=== PATIENT | female | born 1955 | race Caucasian/White ===

== ENCOUNTER → 2016-05-01 | Outpatient (CLI) | payer OTHER ==
[~2016-05-01] MED LIST: AMIO200T4 PO; CHOL1000 PO; CYAN10005 PO; DOCU100C31 PO; DRGTP25 TOP; DTRSR4 PO; DXM/4 PO; FENT75DI2 TOP; GABA-113 PO; LDDP5 TD; LENA20CA PO; LEVO50TA PO; MRLP17X PO; NRN400 PO; NUTRTAB55 PO; ONDA4TAB10 SL; OXYC1TAB3 PO; RXC5 PO; SULF-302 PO; XNX25 PO; ZVR/400 PO
--- NOTE | 2016-05-01 13:47 | MAMMOGRAPHY REPORT ---
UNILATERAL LEFT DIGITAL DIAGNOSTIC MAMMOGRAM TOMOSYNTHESIS: 05/01/2016 CLINICAL HISTORY: 6 Month Follow-up Left. TECHNIQUE: Breast tomosynthesis in addition to standard 2D mammography was performed. Left CC and MLO 2-D and tomosynthesis images were obtained. COMPARISON: Comparison is made to exams dated: 10/30/2015 ultrasound, 10/30/2015 mammogram, and 10/23/19 16 mammogram - [facility]. BREAST COMPOSITION: The tissue of the left breast is extremely dense, which lowers the sensitivity of mammography. FINDINGS: There are no suspicious masses, calcifications, or areas of architectural distortion note d in the left breast. There has been no significant interval change compared to the September 2015 exam. The previously described asymmetries are less prominent and have the appearance of normal fibrogla ndular tissue on the current exam. Scattered benign-appearing calcifications are stable. IMPRESSION: ACR BI-RADS CATEGORY 2: BENIGN There is no mammographic evidence of malignancy in the left breast. Return to annual mammogram scree shon schedule is recommended, due September/October 2016. The patient has been verbally notified of the res ults. Approximately 10% of breast cancers are not detected with mammography. A negative mammographic repor t should not delay biopsy if a clinically suggestive mass is present. Florencia Rogers M.D. /:05/01/2016 11:13:57 Sql Application Developer: Monik NEVILLE)(Phi), [facility] letter sent: Normal 1/2 BI-RADS Code: ACR BI-RADS Category 2: Benign
== END | disposition home or self-care (01) ==
LOC: C.MAMM 10:51
PROVIDERS: ATTEND Nurse Practitioner Adult Health
DX: Z12.31 Encounter for screening mammogram for malignant neoplasm of breast (principal)

== ENCOUNTER 2016-06-29 16:02 | Emergency (ER) | payer OTHER ==
[~2016-06-29] VITALS: Ht 160 cm; Wt 75.3 kg
[~2016-06-29 16:02] MED LIST changes: -CHOL1000 PO; -DOCU100C31 PO; -DRGTP25 TOP; -FENT75DI2 TOP; -GABA-113 PO; -LENA20CA PO; -OXYC1TAB3 PO; +SULF-183 PO; -SULF-302 PO
[2016-06-29 16:06] VITALS: TEMP 36.7; Ht 160 cm; Wt 75.3 kg
[2016-06-29] MEDS ORDERED: MoRPHine SULFATE 10 MG/ML CARP/VIAL IV STA (16:25)
[2016-06-29] MEDS ORDERED: ONDANSETRON INJ 2 MG/ML 2 ML VIAL IV STA (16:25)
[2016-06-29 16:38] LABS: BASO % 0.3 %; BASO ABS # 0.01 K/uL (0-0.2); COMPLETE YES; EOS % 6.3 %; HEMATOCRIT 32.4 % (37-47); IG% 0.3 %; LYMPH % 19.3 %; LYMPH ABS # 0.68 K/uL (1.2-3.4); MEAN CELL VOLUME 88.3 fL (80-100); MEAN CORPUSCULAR HEMOGLOBIN 28.6 pg (25-34); MEAN CORPUSCULAR HGB CONC 32.4 g/dl (32-36); MEAN PLATELET VOLUME 10.2 fL (7.4-10.4); MONO % 4.5 %; NEUT % 69.3 %; PLATELET COUNT 215 K/uL (130-400); RED BLOOD COUNT 3.67 M/uL (4.2-5.4); WHITE BLOOD COUNT 3.52 K/uL (4.8-10.8)
[2016-06-29 16:49] LABS: INR 1.1 (0.9-1.1); PROTHROMBIN TIME (PATIENT) 11.3 SECONDS (9.0-12.0)
[2016-06-29] MEDS ORDERED: DRGTP25 TOP (16:54)
[2016-06-29] MEDS ORDERED: CHOL1000 PO (16:54)
[2016-06-29] MEDS ORDERED: OXYC1TAB3 PO (16:54)
[2016-06-29] MEDS ORDERED: GABA-113 PO (16:54)
[2016-06-29] MEDS ORDERED: FENT75DI2 TOP (16:54)
[2016-06-29] MEDS ORDERED: DTRSR4 PO (16:54)
[2016-06-29] MEDS ORDERED: LENA20CA PO (16:54)
[2016-06-29] MEDS ORDERED: DOCU100C31 PO (16:54)
[2016-06-29 17:03] LABS: BUN/CREATININE RATIO 18.9 (10-20); CALCIUM 8.2 mg/dl (8.5-10.1); POTASSIUM 3.5 mmol/L (3.5-5.1)
[2016-06-29 17:21] VITALS: BP 123/70; PULSE 70; O2SAT 99
--- NOTE | 2016-06-29 17:25 | DIAGNOSTIC IMAGING REPORT ---
THORACIC SPINE 3 VIEWS HISTORY: Pain worsening upper back pain/history multiple myeloma COMPARISON: 10/30/2015 FINDINGS: Generalized osteopenia to osteoporosis. Several cmkp-[id number]-myyettzf compression deformities in general stable compared to the prior exam. Possibility of slight degree of progression at L1 and T6 is possible. No subluxation. Generalized degenerative disc change. IMPRESSION: Generalized osteopenia to osteoporosis. 2. Multiple mild to moderate compression deformities the bulk of which appear to be stable. Possible slight progression at several sites including L1 and T6. 3. No evidence for a high-grade compression deformity or retropulsion of any component of the thoracic column Electronically signed by: Gorge Cartwright M.D. 06/29/2016 5:24 PM Dictated Date/Time: 06/29/2016 5:21 PM
--- NOTE | 2016-06-29 17:49 | EMERGENCY ROOM VISIT NOTE ---
History First contact with patient: 16:13 Chief Complaint: RASH Stated Complaint: ALLERGY ALL OVER LOWER BODY, SEVERE BACK PAIN History of Present Illness The patient is a 61 year old female who presents to the Emergency Room with complaints of increased thoracic back pain for the past 3 days. She also noticed a rash on her lower back, abdomen and lower legs this morning. She states the only area that itches is on her left lower leg. The patient states that she has multiple myeloma and always has back pain. She is currently has to fentanyl patches totaling 100 micrograms. She also takes oxycodone 10 mg every 4 hours for her pain. The patient denies any trauma to her upper back. The patient is followed by Dr. Tomas Dejesus, oncology for her multiple myeloma. A family member states that she just started a new medication a little over 3 weeks ago called Revlimid. She takes 1 pill daily for 21 days and has one week off and then restart the medication. Her last tablet was this past Thursday and she will restarted in 2 days which is a Thursday. The patient denies any other new medications or any other new environmental exposures. The patient denies any chest pain, shortness of breath, nausea vomiting or diarrhea. The patient denies any throat tightness. Review of Systems 10 system review was performed and was negative unless stated otherwise history of present illness. Past Medical/Surgical History Medical Problems: (1) Acute renal failure (2) Anemia (3) Chest pain (4) Chronic renal insufficiency (5) Constipation due to opioid therapy (6) HTN (hypertension) (7) Light chain myeloma (8) Multiple myeloma (9) Osteoporosis (10) Pathologic compression fracture of thoracic vertebra with delayed healing (11) Pathologic fracture (12) Presence of cardiac pacemaker (13) Rib fracture (14) Sick sinus syndrome (15) Stenosis of left subclavian artery Family History Diabetes mellitus Hypertension Social History Smoking Status: Former Smoker Alcohol Use: none Drug Use: none Marital Status: Housing Status: lives with significant other Occupation Status: unemployed Current/Historical Medications Scheduled Acyclovir (Acyclovir), 400 MG PO BID Cholecalciferol (Vitamin D3), 5,000 UNITS PO DAILY Dexamethasone (Decadron), 40 MG PO WK Docusate Sodium (Docusate Sodium), 2 CAP PO DAILY Fentanyl (Fentanyl), 25 MCG TOP CQ72HR Fentanyl (Fentanyl), 75 MCG TOP CQ72HR Gabapentin (Neurontin), 300 MG PO TID Lenalidomide (Revlimid), 25 MG PO DAILY Levothyroxine Sodium (Synthroid), 1 TAB PO DAILY Tolterodine Tartrate (Detrol LA), 4 MG PO DAILY Scheduled PRN Oxycodone Ir (Roxicodone Ir), 10 MG PO Q4H PRN for Pain Polyethylene (Miralax), 17 GM PO DAILY PRN for Constipation Allergies Coded Allergies: No Known Allergies (Unverified , 01/05/16) Physical Exam Vital Signs Date Time Temp Pulse Resp B/P Pulse Ox O2 Delivery O2 Flow Rate FiO2 06/29/16 17:21 70 16 123/70 99 Room Air 06/29/16 16:06 36.7 72 18 137/85 98 Room Air Physical Exam GENERAL: 61-year-old white female appears in slight distress secondary to pain. MENTAL Status: Alert and oriented 3. MOUTH:Buccal mucosa without petechiae. Pharynx without erythema or edema. Airway is adequate. NECK: Supple, no lymphadenopathy noted. No carotid bruits noted. LUNGS: Clear auscultation without wheezes rales or rhonchi. CARDIAC: Regular rate and rhythm without murmur. Pulses is full and equal throughout. ABDOMEN: Positive bowel sounds all 4 quadrants. Soft, nontender to palpation without organomegaly or masses. THORACIC SPINE: Kyphosis is noted. The patient has tenderness to palpation over the mid thoracic region. LUMBAR SPINE: Patient is nontender to palpation over the spinous processes. SKIN: The patient has an urticarial rash type over the lower back. She also has pinpoint erythematous papules on bilateral lower legs. They do not roberto. There are no vesicles. A similar rashes noted on her lower abdomen. The remainder skin is clear. Medical Decision & Procedures ER Provider Diagnostic Interpretation: THORACIC SPINE 3 VIEWS HISTORY: Pain worsening upper back pain/history multiple myeloma COMPARISON: 10/30/2015 FINDINGS: Generalized osteopenia to osteoporosis. Several lqyx-sh-lkaidcgr compression deformities in general stable compared to the prior exam. Possibility of slight degree of progression at L1 and T6 is possible. No subluxation. Generalized degenerative disc change. IMPRESSION: Generalized osteopenia to osteoporosis. 2. Multiple mild to moderate compression deformities the bulk of which appear to be stable. Possible slight progression at several sites including L1 and T6. 3. No evidence for a high-grade compression deformity or retropulsion of any component of the thoracic column Electronically signed by: Gorge Cartwright M.D. 06/29/2016 5:24 PM Laboratory Results 06/29/16 16:28 Red Blood Count 3.67, Mean Corpuscular Volume 88.3, Mean Corpuscular Hemoglobin 28.6, Mean Corpuscular Hemoglobin Concent 32.4, Mean Platelet Volume 10.2, Neutrophils (%) (Auto) 69.3, Lymphocytes (%) (Auto) 19.3, Monocytes (%) (Auto) 4.5, Eosinophils (%) (Auto) 6.3, Basophils (%) (Auto) 0.3, Neutrophils # (Auto) 2.44, Lymphocytes # (Auto) 0.68, Monocytes # (Auto) 0.16, Eosinophils # (Auto) 0.22, Basophils # (Auto) 0.01 06/29/16 16:28 Test 06/29/16 16:28 White Blood Count 3.52 K/uL (4.8-10.8) Red Blood Count 3.67 M/uL (4.2-5.4) Hemoglobin 10.5 g/dL (12.0-16.0) Hematocrit 32.4 % (37-47) Mean Corpuscular Volume 88.3 fL (80-100) Mean Corpuscular Hemoglobin 28.6 pg (25-34) Mean Corpuscular Hemoglobin Concent 32.4 g/dl (32-36) Platelet Count 215 K/uL (130-400) Mean Platelet Volume 10.2 fL (7.4-10.4) Neutrophils (%) (Auto) 69.3 % Lymphocytes (%) (Auto) 19.3 % Monocytes (%) (Auto) 4.5 % Eosinophils (%) (Auto) 6.3 % Basophils (%) (Auto) 0.3 % Neutrophils # (Auto) 2.44 K/uL (1.4-6.5) Lymphocytes # (Auto) 0.68 K/uL (1.2-3.4) Monocytes # (Auto) 0.16 K/uL (0.11-0.59) Eosinophils # (Auto) 0.22 K/uL (0-0.5) Basophils # (Auto) 0.01 K/uL (0-0.2) RDW Standard Deviation 51.8 fL (36.4-46.3) RDW Coefficient of Variation 16.0 % (11.5-14.5) Immature Granulocyte % (Auto) 0.3 % Immature Granulocyte # (Auto) 0.01 K/uL (0.00-0.02) Prothrombin Time 11.3 SECONDS (9.0-12.0) Prothromb Time International Ratio 1.1 (0.9-1.1) Activated Partial Thromboplast Time 25.8 SECONDS (21.0-31.0) Partial Thromboplastin Ratio 1.0 Anion Gap 11.0 mmol/L (3-11) Est Creatinine Clear Calc Drug Dose 58.1 ml/min Estimated GFR () 70.9 Estimated GFR (Non- 61.2 BUN/Creatinine Ratio 18.9 (10-20) Calcium Level 8.2 mg/dl (8.5-10.1) Medications Administered Medications (Trade) Dose Ordered Sig/Charli Route Start Time Stop Time Status Last Admin Dose Admin Morphine Sulfate (MoRPHine SULFATE INJ) 6 mg NOW STAT IV 06/29/16 16:25 06/29/16 16:30 DC 06/29/16 16:43 6 MG Ondansetron HCl (Zofran Inj) 4 mg NOW STAT IV 06/29/16 16:25 06/29/16 16:30 DC 06/29/16 16:43 4 MG ED Course The patient was evaluated. The patient's EMR was reviewed. IV access was obtained. The patient was given morphine 6 mg IV for pain and Zofran 4 mg IV push for associated nausea. CBC and differential, renal profile, coags were ordered. I reviewed the side effects of Revlimid which include low white count as well as low platelet count. It also has side effects of both urticarial as well as other rashes. It stated the rashes could be serious. X-ray of the thoracic spine was ordered and interpreted by the radiologist and myself as above with multiple stable compression fractures slight progression of compression fracture at the T6 and L1 level. The labs were reviewed. The patient's white count is low as well as her hemoglobin but that is similar to her recent labs. Platelet count was normal. The patient was reevaluated and was feeling much better. I discussed with the patient's family member about her keeping on top of her pain. The family member states that she does not take the oxycodone on a regular basis. The patient's case was discussed with Dr. Gómez who agrees with treatment plan. The patient was discharged home in stable condition.. Medical Decision Differential diagnosis include allergic reaction, medication side effects, low platelet count, viral exanthem Differential diagnosis for the thoracic spine include acute compression fracture , osteoarthritis, muscular strain Impression Primary Impression: Medication side effect Additional Impressions: Anemia Compression fracture of thoracic spine, non-traumatic Departure Information Dispostion Home / Self-Care Condition GOOD Referrals Tomas Dejesus M.D. (PCP) Forms HOME CARE DOCUMENTATION FORM, IMPORTANT VISIT INFORMATION, WORK / SCHOOL INSTRUCTIONS Patient Instructions My [facility] [employer] Additional Instructions Make sure you do not get behind on pain medication. Take the oxycodone as soon as your pain increases. Do not start your next cycle of Revlimid until you see Dr. Dejesus on Thursday. If you experience any throat or chest tightness return to the ER immediately. Problem Qualifiers
== END 2016-06-29 17:57 | disposition home or self-care (01) ==
LOC: C.EDB 16:04 → C.EDA 17:57
DX: R21 Rash and other nonspecific skin eruption (principal); T45.1X5A Adverse effect of antineoplastic and immunosuppressive drugs, initial encounter; M48.54XA Collapsed vertebra, not elsewhere classified, thoracic region, initial encounter for fracture; D64.9 Anemia, unspecified; C90.00 Multiple myeloma not having achieved remission; I12.9 Hypertensive chronic kidney disease with stage 1 through stage 4 chronic kidney disease, or unspecified chronic kidney disease; N18.9 Chronic kidney disease, unspecified; M81.0 Age-related osteoporosis without current pathological fracture; Z87.891 Personal history of nicotine dependence; Z83.3 Family history of diabetes mellitus; Z82.49 Family history of ischemic heart disease and other diseases of the circulatory system; Z79.899 Other long term (current) drug therapy